=== PATIENT | male | born 1990 | race Caucasian/White ===

== ENCOUNTER 2018-09-28 10:39 | Emergency (ER) | payer OTHER ==
[2018-09-28] MEDS ORDERED: LET GEL TOPICAL 1 EA SYR TP ONE ×2 (10:58→11:03)
[2018-09-28] MEDS ORDERED: TDAP ADULT 0.5 ML INJ (BOOSTRIX) IM ONE (11:03)
--- NOTE | 2018-09-28 11:09 | EDPHY ---
H & P Stated Complaint: left heel lac occurred last night 2am from table, bleeding controlled Time Seen by Provider: 09/28/18 10:46 HPI/ROS: 28 yo M preents with c/o injury to the his left heel, states a marble top table that had been leaning against a wall fell hitting his foot. This happened around 1 am. He is unsure of his tetanus status. He states he walked around for several hours after the injury without difficulty. Review of systems As per HPI General no fever no chills no weakness HEENT no eye pain no eye discharge. No eye redness, no sore throat Respiratory no cough, no shortness of breath Cardiac no chest pain, no peripheral edema GI no abdominal pain, no diarrhea, no constipation, no nausea, no vomiting no flank pain, no hematuria, no dysuria Musculoskeletal no myalgias, no joint pain Heme no easy bruising, no easy bleeding Endo no polyuria, no polydipsia Skin no rashes, no pruritus Neuro no syncope, no dizziness, no headaches Psych is no suicidal ideation, no homicidal ideation Source: Patient, Family Exam Limitations: No limitations - Personal History Current Tetanus Diphtheria and Acellular Pertussis (TDAP): No - Medical/Surgical History Hx Asthma: No Hx Chronic Respiratory Disease: No Hx Diabetes: No Hx Cardiac Disease: No Hx Renal Disease: No Hx Cirrhosis: No Hx Alcoholism: No Hx HIV/AIDS: No Hx Splenectomy or Spleen Trauma: No Other PMH: denies medical or surgical - Family History Significant Family History: No pertinent family hx - Social History Smoking Status: Current some day smoker Alcohol Use: Heavy - Physical Exam Exam: 28-year-old male Alert and oriented in no acute distress nontoxic appearance, afebrile Atraumatic normocephalic Neck no JVD Lungs clear to auscultation, no respiratory distress Heart regular rate and rhythm Extremities no cyanosis clubbing edema Left lower extremity-midline posterior heel with 3 cm horizontal laceration through dermis at the level of the malleoli, no tendon exposed Normal Foot movement with calf squeeze Sensation intact Capillary refill intact Posterior tibialis intact Constitutional: Initial Vital Signs Temperature (C) 36.5 C 09/28/18 10:48 Heart Rate 84 09/28/18 10:48 Respiratory Rate 18 09/28/18 10:48 Blood Pressure 128/102 H 09/28/18 10:48 O2 Sat (%) 96 09/28/18 10:48 O2 Delivery Mode Room Air Allergies/Adverse Reactions: No Known Allergies Allergy (Unverified 09/28/18 10:48) Home Medications: Medication Instructions Recorded NK [No Known Home Meds] 09/28/18 Medical Decision Making - Diagnostics Imaging Results: Imaging Impressions Foot X-Ray 09/28/18 10:57 Impression: No acute osseous findings. Procedures: Procedure note-laceration The wound was irrigated with copious amounts of saline. Lidocaine 1% and bupivacaine 0.25% without epinephrine was used for local anesthetic. Six simple interrupted sutures were placed. 4-0 Ethilon was used. Patient tolerated procedure well. ED Course/Re-evaluation: Patient seen for left heel injury with laceration. X-ray negative for fracture Impression Left heel injury with no tendon involvement Plan Sutured repair Patient placed in Mamadou wrap Advised to rest area for the next 72 hr, and return for suture removal in 10-12 days Differential Diagnosis: Differential diagnosis considered but not limited to: He laceration, he will abrasion, ecchymoses tendon rupture, and Achilles tendon laceration, ankle fracture, calcaneal fracture - Data Points Medications Given: Discontinued Medications Diphtheria/Tetanus/Acell Pertussis (Boostrix) 0.5 ml IM .ONCE ONE Stop: 09/28/18 11:04 Last Admin: 09/28/18 11:28 Dose: 0.5 ml Tetracaine/Epinephrine/Lidocaine (Let Gel Topical) 1 ea TP EDNOW ONE Stop: 09/28/18 11:04 Last Admin: 09/28/18 11:27 Dose: 1 ea Departure - Departure Disposition: Home, Routine, Self-Care Clinical Impression: Laceration of foot excluding toes without complication Condition: Good Instructions: Care For Your Stitches (ED) Additional Instructions: Return in 10-12 days for suture removal Referrals: NONE *PRIMARY CARE P,. [Primary Care Provider] - As per Instructions Chu Ray DPM [Doctor of Podiatric Medicine] - As per Instructions
[2018-09-28 15:25] VITALS: BP 158/81
== END 2018-09-28 12:43 | disposition home or self-care (01) ==
LOC: CED 10:39
PROC: 0HQNXZZ Repair Left Foot Skin, External Approach (ICD-10-PCS; principal; 2018-09-28)
DX: S91.312A Laceration without foreign body, left foot, initial encounter (principal); W20.8XXA Other cause of strike by thrown, projected or falling object, initial encounter; F17.200 Nicotine dependence, unspecified, uncomplicated; Z23 Encounter for immunization
CPT/HCPCS: 73630-PO; 90471-ER; 99283-ER